=== PATIENT | male | born 1970 | race Hispanic/Latino ===

== ENCOUNTER 2017-02-24 20:54 | Inpatient (IN) | payer MEDICAID ==
[2017-02-24 20:57] VITALS: BMI 41.1
--- NOTE | 2017-02-24 21:05 | ED PDOC ---
Arrival/HPI - General Time Seen by Provider: 02/24/17 20:59 Historian: Patient - History of Present Illness Narrative History of Present Illness (Text): 02/24/17 20:59 Ronald Pennington is a 46 year old male, whose past medical history includes hypertension, who presents to the emergency department complaining of 3 days duration of palpitations, shortness of breath, dyspnea of exertion, and a feeling of neck pressure. Patient states that there are no relieving exacerbating factors. Patient denies any fevers, chills, or any other complaints at this time. Time/Duration: < week (3 days) Symptom Onset: Gradual Symptom Course: Unchanged Severity Level: Mild Activities at Onset: Rest Context: Home Past Medical History - Provider Review Nursing Documentation Reviewed: Yes Family/Social History - Physician Review Nursing Documentation Reviewed: Yes Family/Social History: No Known Family HX Allergies/Home Meds Allergies/Adverse Reactions: Allergies No Known Allergies Allergy (Verified 02/24/17 20:58) Physical Exam - Physical Exam Narrative Physical Exam (Text): 02/24/17 20:59 - Review of Systems Constitutional: Normal. absent: Fatigue, Weight Change, Fevers Eyes: Normal ENT: Neck pressure Respiratory: SOB, dyspnea on exertion. absent: Cough, Sputum Cardiovascular: Palpitations absent: Chest pain, Syncope Gastrointestinal: Normal absent: Abdominal pain, Diarrhea, Nausea, Vomiting Genitourinary: Normal. absent: Dysuria, Frequency, Hematuria Musculoskeletal: Normal. absent: Arthralgias, Back Pain, Neck Pain Skin: Normal Neurological: Normal absent: Focal Weakness Endocrine: Normal Hemo/Lymphatic: Normal Psychiatric: Normal - Physical exam Patient appears age appropriate, speaking full sentences without difficulty. - Systems Exam Head: Present: Atraumatic, Normocephalic Pupils: Present: PERRL Extraocular Muscles: Present: EOMI Conjunctiva: Present: Normal Mouth: Present: Moist Mucous Membranes Neck: Present: Normal Range of Motion. No: MIDLINE TENDERNESS, Paraspinal Tenderness Respiratory/Chest: Present: Clear to Auscultation, Good Air Exchange. No: Respiratory Distress, Accessory Muscle Use, Tachypneic Cardiovascular: Tachycardic Present: Normal S1, S2, Peripheral Pulses Present. No: Murmurs Abdomen: Present: Normal Bowel Sounds, No: Tenderness, Peritoneal Signs, Rebound, Guarding, Distention Back: Present: Normal Inspection. No: Midline Tenderness, Paraspinal Tenderness Upper Extremity: Present: Normal Inspection. No: Cyanosis, Edema Lower Extremity: Present: Normal Inspection. No: Edema Neurological: Present: GCS=15, Speech Normal, cranial nerves II through XII fully intact with no cerebellar abnormality, neuro-sensory fully intact. No focal neurological deficits. Skin: Present: Warm, Dry, Normal Color. No: Rashes Lymphatic: Present: OX3, NI, NC Psychiatric: Present: Alert, Oriented x 3, Normal Insight, Normal Concentration Vital Signs Reviewed: Yes Vital Signs Temp Pulse Resp BP Pulse Ox 02/24/17 23:17 120 H 02/24/17 22:36 146 H 149/100 H 02/24/17 22:13 134 H 132/100 H 02/24/17 21:34 149 H 137/100 H 02/24/17 21:27 20 02/24/17 21:13 148 H 137/100 H 02/24/17 21:02 98.7 F 149 H 16 137/100 H 98 Temperature: Afebrile Blood Pressure: Hypertensive Pulse: Tachycardic Respiratory Rate: Normal Appearance: Positive for: Well-Appearing, Non-Toxic, Comfortable Pain Distress: None Mental Status: Positive for: Alert and Oriented X 3 Medical Decision Making ED Course and Treatment: 02/24/17 21:08 Impression: 46 year old male complaining of 3 days duration of palpitations, shortness of breath, dyspnea on exertion, and a feeling of neck pressure. pt hemodynamically stable. Seen immediately on arrival. EKG shows atrial flutter, tachycardic, 150bpm. Interpreted by me. Differential Diagnosis included but are not limited to: Arrhythmia vs. ACS cs. Ischemia Plan: -- EKG -- Chest X-ray -- Labs -- Aspirin and Cardizem -- Reassess and disposition Progress Notes: 02/24/17 22:19 cardizem ordered, 20mg x2. No change in HR. BP elevated lopressor ordered cardizem drip held for now to see lopressor response CXR shows slight cardiomegaly, some vasc. congestion, no infiltrates. Interpreted by me. 02/24/17 23:31 HR decreased on cardizem drip pt in no distress seen by Dr. Quinones in the ER earlier dw Dr. Quinones as well, accepted pt to his service with Dr. Marina on consult pt aware of and agrees with plan - Critical Care Critical Care Minutes: 30 minutes - Lab Interpretations Lab Results: 02/24/17 21:15 02/24/17 21:15 Lab Results 02/24/17 21:15: Sodium 138, Potassium 3.9, Chloride 109 H, Carbon Dioxide 20 L, Anion Gap 13, BUN 17, Creatinine 1.0, Est GFR ( Amer) > 60, Est GFR (Non- Af Amer) > 60, Random Glucose 97, Calcium 8.8, Total Bilirubin 0.5, AST 68 H, ALT 80 H, Alkaline Phosphatase 64, Lactate Dehydrogenase 565, Total Creatine Kinase 241 H, CK-MB (CK-2) 2.2, CK-MB (CK-2) % Cancelled, Troponin I 0.06, Total Protein 7.3, Albumin 3.9, Globulin 3.4, Albumin/Globulin Ratio 1.1 02/24/17 21:15: PT 12.4 H, INR 1.15 H, APTT 27.9 02/24/17 21:15: WBC 8.5, RBC 3.97, Hgb 13.5 L, Hct 40.5 L, MCV 102.0, MCH 34.0, MCHC 33.3, RDW 13.4, Plt Count 175, MPV 11.8 H, Gran % 62.4, Lymph % (Auto) 29.5 , [place] % (Auto) 5.3, Eos % (Auto) 2.4, Baso % (Auto) 0.4, Gran # 5.30, Lymph # 2.5, [place] # 0.5, Eos # 0.2, Baso # 0.03 I have reviewed the lab results: Yes - RAD Interpretation Radiology Orders: 02/24/17 21:00 CHEST PORTABLE [RAD] Stat - Medication Orders Current Medication Orders: diltiaZEM IVPB 100mg in NS (Cardizem 100mg In Ns) 100 mls @ 5 mls/hr IV .Q20H STA; 5 MG/HR PRN Reason: Protocol Stop: 02/25/17 17:59 Last Admin: 02/24/17 22:36 Dose: 5 mls/hr Discontinued Medications Aspirin (Aspirin Chewable) 324 mg PO STAT STA Stop: 02/24/17 21:01 Last Admin: 02/24/17 21:13 Dose: 324 mg Diltiazem HCl (Cardizem) 20 mg IVP STAT STA Stop: 02/24/17 21:05 Last Admin: 02/24/17 21:13 Dose: 20 mg Diltiazem HCl (Cardizem) 20 mg IVP STAT STA Stop: 02/24/17 21:27 Last Admin: 02/24/17 21:34 Dose: 20 mg Metoprolol Tartrate (Lopressor) 5 mg IVP STAT STA Stop: 02/24/17 22:05 Last Admin: 02/24/17 22:13 Dose: 5 mg - Scribe Statement The provider has reviewed the documentation as recorded by the Johnathan Barajas Provider Scribe Attestation: All medical record entries made by the Jaredibe were at my direction and personally dictated by me. I have reviewed the chart and agree that the record accurately reflects my personal performance of the history, physical exam, medical decision making, and the department course for this patient. I have also personally directed, reviewed, and agree with the discharge instructions and disposition. Disposition/Present on Arrival - Present on Arrival Any Indicators Present on Arrival: No - Disposition Have Diagnosis and Disposition been Completed?: Yes Diagnosis: Atrial flutter Disposition: HOSPITALIZED Disposition Time: 23:37 Patient Plan: Observation Condition: FAIR Referrals: Antoine Quinones MD [Primary Care Provider] - Follow up with primary
[2017-02-24 21:23] LABS: ADD MANUAL DIFF? NO
[2017-02-24 21:36] LABS: ALB/GLOB RATIO 1.1 (1.1-1.8); ALKALINE PHOSPHATASE 64 U/L (38-133); ALT/SGPT 80 U/L (7-56); AST/SGOT 68 U/L (15-59); BILIRUBIN,TOTAL 0.5 mg/dL (0.2-1.3); BLOOD UREA NITROGEN 17 mg/dL (7-21); CALCIUM 8.8 mg/dL (8.4-10.5); CARBON DIOXIDE 20 mmol/L (21-33); CHLORIDE 109 mmol/L (98-107); GFR AFRICAN-AMERICAN > 60; GLUCOSE,RANDOM 97 mg/dL (70-110); POTASSIUM 3.9 mmol/L (3.6-5.0); SODIUM 138 mmol/L (132-148); TOTAL PROTEIN 7.3 g/dL (5.8-8.3)
[2017-02-24 21:48] LABS: TROPONIN I 0.06 ng/mL
[2017-02-24 21:54] LABS: BASO # 0.03 K/mm3 (0.0-2.0); BASO % 0.4 % (0.0-3.0); EOS # 0.2 (0.0-0.7); EOS % 2.4 % (1.5-5.0); GRAN % 62.4 % (50.0-68.0); HEMATOCRIT 40.5 % (42.0-52.0); LYMPH # 2.5 (1.2-3.4); LYMPH % 29.5 % (22.0-35.0); MEAN CORPUSCULAR HGB CONC 33.3 g/dl (31.0-37.0); MEAN PLATELET VOLUME 11.8 fl (7.0-11.0); MONO # 0.5 (0.1-0.6); MONO % 5.3 % (1.0-6.0); PLATELET COUNT 175 10^3/uL (120.0-450.0); RED CELL DISTRIBUTION WIDTH 13.4 % (11.5-14.5); WHITE BLOOD COUNT 8.5 10^3/ul (4.5-11.0)
[2017-02-24] MEDS ORDERED: diltiaZEM IVPB 100mg in NS 100 ML IV STA (22:00)
[2017-02-24] MEDS ORDERED: Metoprolol 1 mg/ml Inj IVP STA (22:04)
[2017-02-24 22:10] LABS: INR 1.15 (0.93-1.08); PARTIAL THROMBOPLASTIN TIME 27.9 Seconds (23.7-30.8)
[2017-02-25] MEDS ORDERED: diltiaZEM IVPB 100mg in NS 100 ML IV PRN (03:38)
[2017-02-25] MEDS ORDERED: Enoxaparin 60 mg Syringe SC SCH (08:30)
[2017-02-25] MEDS ORDERED: Digoxin 500 mcg/2ml (0.5 mg/2ml) Inj IVP ONE ×2 (08:59→13:00)
[2017-02-25] MEDS: Enoxaparin 120 mg Syringe SC SCH ×2 (09:20→23:12)
[2017-02-25 09:37] LABS: MAGNESIUM 2.2 mg/dL (1.7-2.2); PHOSPHOROUS 4.6 mg/dL (2.5-4.5)
[2017-02-25 09:48] LABS: TROPONIN I 0.06 ng/mL
--- NOTE | 2017-02-25 11:13 | HP ---
A 46-year-old male came in with palpitations, tightness within his throat. HISTORY OF PRESENT ILLNESS: The patient has these symptoms for a day, came to the office, found to flavia sanchez in atrial flutter, sent to the Emergency Room for evaluation, was admitted with atrial flutter and admitted to cardiac floor. He does have also short of breath. The patient is a drinker, is heavy, n oncompliant. He does have high blood pressure. Does not take any medicines, is noncompliant with do ctors' visits. PAST MEDICAL HISTORY: As above. ALLERGIES: No known allergies. SOCIAL HISTORY: He smokes more than 10 cigarettes a day. No other complaint. FAMILY HISTORY: His father has coronary artery disease and atrial fibrillations. REVIEW OF SYSTEMS: He does have short of breath, back pain, otherwise negative. PHYSICAL EXAMINATION: On 02/25/2017: VITAL SIGNS: Temperature 98.6, heart rate 98, blood pressure 128/72, respirations 20, saturation 95% on nasal cannula. HEAD AND NECK: Normal. No JVD, no thyromegaly. CHEST: Clear, good air entry. CARDIAC: First sound, second sound normal. ABDOMEN: Soft, obese, nontender. EXTREMITIES: No edema. NEUROLOGIC: Normal. LABORATORY DATA: White count 8.5, hemoglobin 13.5, hematocrit 40.5, platelets is 175. Chemistry: S odium 138, potassium 3.9, chloride 109, bicarb 20, BUN 17, creatinine 1. Liver function test: AST 6 8, ALT 80, and total CPK 241. The patient has also troponin 0.06. EKG: Atrial flutter. PT, PTT is normal. IMPRESSION AND PLAN: 1. Acute onset atrial fibrillation/flutter. Will admit to telemetry. Cardiology, Dr. Marina. Will p ut the patient on Cardizem drip. Follow up. Repeat labs in the morning, TSH, lipid profile, geochemistry teacher ry, magnesium. Will follow up clinically. 2. Morbid obesity and smoker, probably chronic obstructive pulmonary disease. Will add nebulizer tr eatment, bronchodilators. Will follow up clinically. 3. Abnormal liver function tests. Will get a hepatitis profile, ultrasound liver. Will follow up w [facility] serviceperson and GI. Anticoagulation is up to the cardiology, but will put the patient on aspirin 325. Follow up clinical ly. The patient will need an echo and further investigation. Antoine Quinones MD cc: [phone] TT: 02/25/2017 11:12:52 en
--- NOTE | 2017-02-25 11:40 | CON ---
DATE: 02/25/2017 REASON FOR CONSULTATION AND FOLLOWUP: New onset atrial fibrillation, heavy alcohol abuse. BRIEF CLINICAL HISTORY: This is a 46-year-old male with a past medical history significant for obesi ty, history of heavy alcohol abuse (24 cans of beer every day), came in with palpitations, found to b e in AFib with rapid ventricular rate. Denies any chest pain, denies any palpitation, but history of gaining weight over a couple of months; is not eating healthy food and is drinking heavy alcohol bec ause of stress at home and work. PAST MEDICAL HISTORY: Significant for borderline hypertension. CURRENT MEDICATION: None. SOCIAL HISTORY: Active smoker and active heavy alcohol abuse. Drinks 24 cans of beer every day. FAMILY HISTORY: Significant for coronary artery disease. CURRENT MEDICATIONS: None. REVIEW OF SYSTEMS: As per HPI. PHYSICAL EXAMINATION: VITAL SIGNS: Temperature afebrile, heart rate 98, blood pressure 128/72. HEENT: PERRLA. Extraocular muscles intact. NECK: Supple. No carotid bruits. No thyromegaly. CHEST: Clear to auscultation. HEART: S1, S2 regular. ABDOMEN: Soft. EXTREMITIES: Clubbing and cyanosis negative. BLOOD WORKUP: As follows: WBC 8.5, hemoglobin 13.5, hematocrit 30.5, platelet count 175. Chemistry shows sodium 130, potassium 3.9, chloride 109, carbon dioxide 20, anion gap of 13, BUN 17, creatinin e 1.0. Troponin 0.06. EKG shows A. flutter with variable conduction. IMPRESSION: New onset atrial flutter secondary to possible alcohol related/heavy alcohol abuse, [place] 24 cans every day; tobacco abuse, morbid obesity. RECOMMENDATION: Will continue Cardizem. Will start beta chantell. Give digoxin. Give Lovenox. Ech o to assess LV function. Once stable, consider stress test because of multiple risk factors of coron ava artery disease. Will follow with you. Lipid profile, TSH, hemoglobin A1c. Thank you, Dr. Quinones, for providing the opportunity in taking care of the patient. Clifford Marina MD cc: [phone] TT: 02/25/2017 11:39:47 Confirmation # [id number] Dictation # [id number] mn
--- NOTE | 2017-02-25 12:47 | RAD ---
HISTORY: cough COMPARISON: No prior. FINDINGS: LUNGS: No active pulmonary disease. PLEURA: No significant pleural effusion identified, no pneumothorax apparent. CARDIOVASCULAR: Normal. OSSEOUS STRUCTURES: No significant abnormalities. VISUALIZED UPPER ABDOMEN: Normal. OTHER FINDINGS: None. IMPRESSION: No active disease.
[2017-02-25] MEDS ORDERED: Levalbuterol 1.25 MG/3 ML Inhal Soln UD IH PRN (13:17)
[2017-02-25] MEDS: Budesonide 0.5 mg/2 ml Inhal Susp UD IH SCH ×2 (13:27→19:36)
[2017-02-25] MEDS: Arformoterol 15 mcg/2 ml Inh Sol IH SCH ×2 (13:27→19:36)
[2017-02-25 13:29] VITALS: PULSE 86
[2017-02-25] MEDS ORDERED: Iodixanol 320 MG/ML 100 ML BOTTLE IV ONE (14:03)
--- NOTE | 2017-02-25 14:56 | CT ---
PROCEDURE: CT Chest with contrast (Pulmonary Angiogram) HISTORY: patient states to Dr. Quinones: SOB/SAM during walki COMPARISON: Plain radiographs performed the same day TECHNIQUE: Axial computed tomography images were obtained of the chest in the pulmonary arterial phase of enhancement. Coronal and sagittal reformatted images were created and reviewed. Intravenous contrast dose: 100 mL Visipaque Radiation dose: Total exam DLP = 840.47 mGy-cm. This CT exam was performed using one or more of the following dose reduction techniques: Automated exposure control, adjustment of the mA and/or kV according to patient size, and/or use of iterative reconstruction technique. FINDINGS: PULMONARY ARTERIES: There are no filling defects in the pulmonary arteries to suggest acute pulmonary embolism. AORTA: The aorta is not dilated. LUNGS: There is multifocal ground-glass attenuation in the upper lobes which likely represents alveolar edema, worse in the right upper lobe. There is mild interlobular septal thickening. There is subsegmental atelectasis in both lower lobes. There are no endobronchial lesions. PLEURAL SPACES: There are bilateral small pleural effusions, larger on the right. No pneumothorax. HEART: There is mild cardiomegaly. No pericardial effusion. LYMPH NODES: No pathologic lymphadenopathy. BONES, CHEST WALL: Within normal limits for the patient's age. No fracture or destructive lesion OTHER FINDINGS: Unremarkable. IMPRESSION: 1. No CT evidence for acute pulmonary embolism. 2. Mild cardiomegaly, interstitial pulmonary edema, bilateral upper lobe alveolar edema and small pleural effusions, larger on the right may reflect mild congestive heart failure. Follow-up is advised.
--- NOTE | 2017-02-25 15:00 | US ---
HISTORY: lfts elevations COMPARISON: None. TECHNIQUE: Sonographic evaluation of the right upper quadrant of the abdomen. FINDINGS: LIVER: Measures 19.9 cm in length. Diffusely increased echogenicity of the liver parenchyma. Smooth contour. No mass. No intrahepatic biliary ductal dilatation. GALLBLADDER: No evidence of cholelithiasis. The gallbladder wall is thickened, to 4 mm. There is pericholecystic fluid present. There is no sonographic Evans sign demonstrated. The findings are nonspecific. COMMON BILE DUCT: Measures 5 mm. No stones. No dilatation. PANCREAS: Limited visualization. No gross abnormality. RIGHT KIDNEY: Measures 12.2 cm in length. Normal echogenicity. No calculus, mass, or hydronephrosis. AORTA: No aneurysmal dilatation. IVC: Unremarkable. OTHER FINDINGS: None . IMPRESSION: Hepatomegaly with diffuse fatty infiltration. Nonspecific gallbladder wall thickening and pericholecystic fluid. No cholelithiasis. No additional abnormality.
--- NOTE | 2017-02-25 17:54 | CARD ---
APPROVED REPORT EKG Measurement Heart [id number] 186P [id number] <Conclusion> Atrial flutter with vaiable conduction T wave abnormality, consider inferolateral ischemia Abnormal ECG
--- NOTE | 2017-02-25 18:11 | CARD ---
APPROVED REPORT EKG Measurement Heart [id number] [place] [id number] [id number] <Conclusion> Atrial flutter with 2:[address] and T wave abnormality Abnormal ECG
--- NOTE | 2017-02-26 04:28 | CP.PCM.PN ---
Subjective - Date & Time of Evaluation Date of Evaluation: 02/26/17 Time of Evaluation: 04:26 - Subjective Subjective: S:Seen at bedside. He is asymptomatic. He was seen because he had multiple pauses. @1.20 am-3.4 second pause. hour later another 3 seconds pause. When I went to floor he has 5.58 second pause and before I left the floor he had 5.43 seconds pause. Monitor showed Afib/Flutter. Medical record was reviewed. O: Last Vital Signs 3 Temp 99.1 F 02/26/17 00:01 Pulse 100 H 02/26/17 02:00 Resp 20 02/26/17 00:01 BP 113/73 02/26/17 00:01 Pulse Ox 96 02/26/17 00:01 LUNGS:Normal breathing pattern. A:Multiple pauses . P:AM labs now including BMP, Mag,PHOS, troponin, digoxin levels. Objective - Vital Signs/Intake and Output Vital Signs (last 24 hours): Temp Pulse Resp BP Pulse Ox 98.3 F 78 21 104/55 L 96 02/25/17 18:00 02/25/17 23:12 02/25/17 18:00 02/25/17 18:00 02/25/17 09:00 - Medications Medications: Current Medications Arformoterol Tartrate (Brovana) 15 mcg IH [id number] [facility] Stop: 03/03/17 08:00 Last Admin: 02/25/17 19:36 Dose: 15 mcg Budesonide (Pulmicort Respules) 0.5 mg IH [id number] [facility] Stop: 03/03/17 08:00 Last Admin: 02/25/17 19:36 Dose: 0.5 mg Diltiazem HCl (Cardizem) 60 mg PO QID [facility] Last Admin: 02/25/17 23:12 Dose: 60 mg Enoxaparin Sodium (Lovenox) 120 mg SC Q12H REKHA PRN Reason: Protocol Last Admin: 02/25/17 23:12 Dose: 120 mg Levalbuterol HCl (Xopenex) 1.25 mg IH [id number] PRN PRN Reason: Shortness of Breath Metoprolol Tartrate (Lopressor) 25 mg PO BID [facility] Last Admin: 02/25/17 17:07 Dose: 25 mg - Labs Labs: PT 12.4 Seconds (9.9-11.8) H 02/24/17 21:15 INR 1.15 (0.93-1.08) H 02/24/17 21:15 APTT 27.9 Seconds (23.7-30.8) 02/24/17 21:15
[2017-02-26 05:18] LABS: ALB/GLOB RATIO 1.1 (1.1-1.8); ALKALINE PHOSPHATASE 48 U/L (38-133); ALT/SGPT 80 U/L (7-56); AST/SGOT 46 U/L (15-59); BILIRUBIN,TOTAL 0.7 mg/dL (0.2-1.3); BLOOD UREA NITROGEN 11 mg/dL (7-21); CALCIUM 8.6 mg/dL (8.4-10.5); CARBON DIOXIDE 24 mmol/L (21-33); GFR AFRICAN-AMERICAN > 60; GLUCOSE,RANDOM 93 mg/dL (70-110); PHOSPHOROUS 5.2 mg/dL (2.5-4.5); TOTAL PROTEIN 6.6 g/dL (5.8-8.3)
[2017-02-26 05:24] LABS: HEMATOCRIT 39.3 % (42.0-52.0); MEAN CELL VOLUME 101.6 fL (80.0-105.0); MEAN CORPUSCULAR HEMOGLOBIN 33.6 pg (25.0-35.0); MEAN CORPUSCULAR HGB CONC 33.1 g/dl (31.0-37.0); MEAN PLATELET VOLUME 11.1 fl (7.0-11.0); RED CELL DISTRIBUTION WIDTH 13.2 % (11.5-14.5); WHITE BLOOD COUNT 8.9 10^3/ul (4.5-11.0)
[2017-02-26 05:30] LABS: TROPONIN I 0.05 ng/mL
[2017-02-26 05:43] LABS: CHLORIDE 108 mmol/L (98-107); POTASSIUM 4.2 mmol/L (3.6-5.0); SODIUM 138 mmol/L (132-148)
[2017-02-26 05:44] LABS: MAGNESIUM 2.2 mg/dL (1.7-2.2)
[2017-02-26] MEDS: Arformoterol 15 mcg/2 ml Inh Sol IH SCH ×2 (07:31→19:52)
[2017-02-26] MEDS: Budesonide 0.5 mg/2 ml Inhal Susp UD IH SCH ×2 (07:31→19:52)
[2017-02-26] MEDS: Enoxaparin 120 mg Syringe SC SCH ×2 (09:22→21:31)
--- NOTE | 2017-02-26 12:19 | PN ---
DATE: 02/26/2017 REASON FOR CONSULTATION AND FOLLOWUP: New onset atrial fibrillation, heavy alcohol abuse, multiple p auses while the patient is sleeping, asymptomatic. BRIEF CLINICAL HISTORY: This is a 46-year-old male with no significant past medical history except o besity, heavy alcohol abuse, 20 cans of beer every day, came in with palpitations, was in A-fib with rapid ventricular rate. The patient started on Cardizem p.o., also is getting digoxin and beta block er. The patient had multiple pauses, A-flutter with variable conduction, longest pause 5.4 seconds, but the patient was sleeping, asymptomatic. Denies any chest pain, shortness of breath. Denies any dizziness. PHYSICAL EXAMINATION: VITAL SIGNS: Temperature afebrile, heart rate 120, blood pressure 109/59. HEENT: PERRLA. Extraocular muscles intact. NECK: Supple. No carotid bruits. No thyromegaly. CHEST: Clear to auscultation. HEART: S1, S2 regular. ABDOMEN: Soft. EXTREMITIES: Clubbing and cyanosis negative. LABORATORY DATA: Blood workup as follows: WBC 8.9, hemoglobin 13, hematocrit 39.3, platelet count 1 49. Chemistry shows sodium 130, potassium 4.2, chloride 108, carbon dioxide 20, anion gap of 10, BUN 11, creatinine 1.0. BNP 3500. IMPRESSION: Atrial fibrillation, new onset, possibly secondary to alcohol related, history of heavy alcohol abuse, 24 cans of beer every day; multiple pauses while he was sleeping at 4:00 a.m. Longest had been 5.4 seconds. RECOMMENDATION: We will discontinue digoxin. We will discontinue Cardizem. We will hold beta block er. Start loading with amiodarone. Because of the patient's heavy alcohol abuse, I will try to get SERG convert. Discussed with the patient that, though it is unlikely, but a very small slim chance, t he patient needs a pacemaker because of multiple pauses. I think these multiple pauses are secondary to 3 rate-limiting medication including beta chantell, digoxin and Cardizem, but we will monitor clos melchor. Thank you, Dr. Quinones, for providing us the opportunity in taking care of the patient. Clifford Marina MD cc: [phone] TT: 02/26/2017 12:18:22 Confirmation # [id number] Dictation # [id number] tn
--- NOTE | 2017-02-26 14:35 | CARD ---
APPROVED REPORT EXAM: Two-dimensional and M-mode echocardiogram with Doppler and color Doppler. INDICATION 2D DIMENSIONS IVSd1.3 (0.7-1.1cm)LVDd6.6 (3.9-5.9cm) PWd1.4 (0.7-1.1cm)LVDs4.9 (2.5-4.0cm) FS (%) 25.9 %LVEF (%)49.8 (>50%) M-Mode DIMENSIONS Left Atrium (MM)4.80 (2.5-4.0cm)Aortic Root4.00 (2.2-3.7cm) Aortic Cusp Exc.2.60 (1.5-2.0cm) Aortic Valve AoV Peak Lhxmkmmc535.0cm/Radha Peak GR.7mmHg Mitral Valve MV E Dzsgjbll68.1cm/s TDI Lateral E' Peak V10.50cm/sMedial E' Peak V6.24cm/sE/Lateral E'8.2 E/Medial E'13.8 Tricuspid Valve TR Peak Ktdxhora042nl/sRAP [id number] Peak Gr.32mmHg [id number] LEFT VENTRICLE The Left Ventricle is moderately dilated. There is mild concentric left ventricular hypertrophy. The systolic function is mildly impaired.EF-45% ( A fib) Globall HK. A Fib No left ventricle thrombus noted on this study. There is no ventricular septal defect visualized. There is no left ventricular aneurysm. There is no mass noted in the left ventricle. RIGHT VENTRICLE The right ventricle is mildly dilated. There is normal right ventricular wall thickness. Systolic function is mildly reduced. ATRIA The left atrium is moderately dilated. The right atrium is mildly dilated. The interatrial septum is intact with no evidence for an atrial septal defect. AORTIC VALVE The aortic valve is thickened but opens well. There is trace aortic regurgitation. There is no aortic valvular stenosis. There is no aortic valvular vegetation. MITRAL VALVE The mitral valve is thickened but opens well. Mitral regurgitation is trace to mild. There is no mitral valve stenosis. There is no evidence of mitral valve prolapse. TRICUSPID VALVE The tricuspid valve leaflets are thickened , but open well. There is mild to moderate tricuspid regurgitation.RVSP-42 mmof hg. There is no tricuspid valve stenosis. There is no tricuspid valve prolapse or vegetation. PULMONIC VALVE The pulmonary valve is normal in structure. There is trace pulmonic valvular regurgitation. There is no pulmonic valvular stenosis. GREAT VESSELS The aortic root is mildly enlarged. The ascending aorta is normal in size. The pulmonary artery is normal. The IVC is dilated. PERICARDIAL EFFUSION There is no pleural effusion. There is no pericardial effusion. <Conclusion> The Left Ventricle is moderately dilated. There is mild concentric left ventricular hypertrophy. The systolic function is mildly impaired.EF-45% ( A fib) The aortic valve is thickened but opens well. There is trace aortic regurgitation. Mitral regurgitation is trace to mild. There is mild to moderate tricuspid regurgitation.RVSP-42 mmof hg. The IVC is dilated. No Thrombus or Vegetation noted.
[2017-02-26] MEDS: diltiaZEM IVPB 100mg in NS 100 ML IV PRN (15:52)
[2017-02-27] MEDS: Arformoterol 15 mcg/2 ml Inh Sol IH SCH ×2 (08:19→19:34)
[2017-02-27] MEDS: Budesonide 0.5 mg/2 ml Inhal Susp UD IH SCH ×2 (08:19→19:34)
[2017-02-27] MEDS: Enoxaparin 120 mg Syringe SC SCH ×2 (09:06→21:49)
--- NOTE | 2017-02-27 13:22 | PN ---
DATE: 02/27/2017 REASON FOR CONSULTATION AND FOLLOWUP: New onset atrial fibrillation, heavy tobacco abuse, heavy alco hol abuse, multiple pauses which is improved. No AFib flutter. Longest was today, it was 2.3 second s. SUBJECTIVE: The patient denies any chest pain, shortness of breath, any palpitations, feels better. Shortness of breath improved. PHYSICAL EXAMINATION: VITAL SIGNS: Temperature afebrile, heart rate 90, blood pressure 132/87. HEENT: PERRLA. Extraocular muscles intact. NECK: Supple. No carotid bruits. No thyromegaly. CHEST: Clear to auscultation. HEART: S1, S2 regular. ABDOMEN: Soft. EXTREMITIES: Clubbing and cyanosis negative. LABORATORY DATA: Blood workup as follows: WBC 8.9, hemoglobin 13, hematocrit 39.3, platelet count 1 49. Chemistry shows sodium 130, potassium 4.2, chloride 108, carbon dioxide 24, anion gap of 10, BUN 11, creatinine 1.0. BNP 3500. IMPRESSION: New onset atrial fibrillation, no evidence of acute myocardial infarction, no evidence o f coronary syndrome, tobacco abuse, alcohol abuse, multiple pauses while the patient was on digoxin, Cardizem and beta chantell. Now patient is on amiodarone and Cardizem, pause improved. The patient h ad an echocardiography done yesterday that revealed ejection fraction 45% in atrial fibrillation, thi ckened aortic valve opens, trace aortic regurgitation, trace to mild mitral regurgitation, mild to mo derate tricuspid regurg, right ventricular systolic pressure of 42. RECOMMENDATION: Continue amiodarone, continue low dose of Cardizem, continue to load amiodarone and will do the SERG cardiovert tomorrow. Once the patient is converted, after that will start no anticoa gulation for 2 weeks. We will follow with you. Complete cessation of smoking, complete abstinence o f alcohol. Emphasis made to the patient, as well as weight reduction. Clifford Marina MD cc: [id number] TT: 02/27/2017 13:21:29 Confirmation # [id number] Dictation # [id number] roderick
--- NOTE | 2017-02-27 21:35 | CON ---
DATE: 02/27/2017 REFERRING PHYSICIAN: Dr. Quinones. REASON FOR CONSULT: Chronic obstructive lung disease, may have sleep apnea syndrome, recurrent afib. HISTORY OF PRESENT ILLNESS: This is a 47-year-old gentleman who originally came to ER with palpitati on, tightness in the throat, found to be in atrial flutter, admitted to telemetry. Cardiology consul t was called. Seen by Dr. Marina. He is scheduled for cardioversion. He is an active smoker, admits to have snoring, daytime sleepy and tired. No chest pain at present. No nausea, no vomiting, no diarrhea. No leg pain or leg swelling. PAST MEDICAL HISTORY: No history of cardiopulmonary disease reported in the past. ALLERGIES: None known. SOCIAL HISTORY: He is an active smoker. Denies any alcohol use. FAMILY HISTORY: There is significant coronary artery disease and also atrial fibrillation. MEDICATIONS: He is on Brovana 15 mcg inhaled twice a day, diltiazem 5 mL per hour, amiodarone 400 mg 3 times a day, Lovenox 120 mg subQ twice a day, Pulmicort inhaled twice a day, Xopenex 1.25 mg q. 6 hours p.r.n. REVIEW OF SYSTEMS: No headache, no rhinitis. Admits to have loud snoring, daytime sleepy and tired, palpitation. No cough. No nausea, no vomiting, and no diarrhea. No leg pain or swelling. Daytime sleepy and tired. PHYSICAL EXAMINATION: GENERAL: Sitting up in a chair in no acute distress. VITAL SIGNS: Temp is 98, heart rate is 95, respiratory rate is 20, blood pressure is 167/76, pulse o x 98% on room air. HEENT: Moist mucous membranes. Crowded airway. Mallampati score is 4. NECK: Short, thick neck. LUNGS: Have scattered rhonchi. HEART: Irregularly irregular. ABDOMEN: Soft, nontender. No organomegaly. EXTREMITIES: No edema. NEUROLOGIC: Awake, alert, follows simple commands. LABORATORY DATA: Shows hemoglobin 13.0, hematocrit 39.3, WBC 8.9, platelet is 149. INR 1.15. Sodiu m 138, potassium 4.2, chloride 108, bicarbonate 24, BUN 11, creatinine 1.0, glucose 93, calcium 8.6, phosphorus 5.2, magnesium 2.2. AST is 46, ALT 80, alk phos is 48. ProBNP is 3500. Albumin is 3.5. Had echocardiogram done today, which shows the right ventricular systolic pressure is 42. Left vent ricular ejection fraction is 45. Had a CT scan of the chest done yesterday, which showed no CT evide nce of pulmonary embolism, mild cardiomegaly, interstitial pulmonary edema, bilateral upper lobe alve olar edema and small pleural effusion, large on the right, may reflect mild congestive heart failure. IMPRESSION AND PLAN: Atrial fibrillation with cardiomyopathy, may have a component of chronic obstru ctive pulmonary disease, obstructive sleep apnea syndrome, morbid obesity. The patient is urged to s top smoking. He was placed on BiPAP 12 hours used only 2 hours last night. Will change the pr essure to 14/8 with 35% oxygen while sleeping. I had a long discussion with the patient about sleep apnea and its consequences, especially the relation to cardiomyopathy, atrial fibrillation. I also u rged him to stop smoking. Will do attended sleep study as outpatient, PFT as outpatient. Thank you and will follow with you. Another important thing, if he is sedated for SERG needs close cardiopulmonary monitoring while sedate d. Thank you again. Clifford Oviedo MD cc: [phone] TT: 02/27/2017 21:34:33 Confirmation # [id number] Dictation # [id number] jennifer
[2017-02-27] MEDS: diltiaZEM IVPB 100mg in NS 100 ML IV PRN (21:50)
[2017-02-28 06:41] LABS: ADD MANUAL DIFF? NO; BASO # 0.02 K/mm3 (0.0-2.0); BASO % 0.2 % (0.0-3.0); EOS # 0.2 (0.0-0.7); EOS % 1.9 % (1.5-5.0); GRAN # 6.53 (1.4-6.5); GRAN % 71.4 % (50.0-68.0); HEMATOCRIT 38.2 % (42.0-52.0); LYMPH # 1.9 (1.2-3.4); LYMPH % 20.9 % (22.0-35.0); MEAN CELL VOLUME 100.8 fL (80.0-105.0); MEAN CORPUSCULAR HEMOGLOBIN 33.5 pg (25.0-35.0); MEAN CORPUSCULAR HGB CONC 33.2 g/dl (31.0-37.0); MEAN PLATELET VOLUME 11.9 fl (7.0-11.0); MONO # 0.5 (0.1-0.6); MONO % 5.6 % (1.0-6.0); PLATELET COUNT 146 10^3/uL (120.0-450.0); RED CELL DISTRIBUTION WIDTH 13.3 % (11.5-14.5); WHITE BLOOD COUNT 9.1 10^3/ul (4.5-11.0)
[2017-02-28 06:57] LABS: ALB/GLOB RATIO 1.1 (1.1-1.8); ALKALINE PHOSPHATASE 53 U/L (38-133); ALT/SGPT 58 U/L (7-56); AST/SGOT 30 U/L (15-59); BILIRUBIN,TOTAL 0.8 mg/dL (0.2-1.3); BLOOD UREA NITROGEN 10 mg/dL (7-21); CALCIUM 8.5 mg/dL (8.4-10.5); CARBON DIOXIDE 24 mmol/L (21-33); CHLORIDE 107 mmol/L (98-107); GFR AFRICAN-AMERICAN > 60; GLUCOSE,RANDOM 98 mg/dL (70-110); MAGNESIUM 2.4 mg/dL (1.7-2.2); PHOSPHOROUS 4.1 mg/dL (2.5-4.5); SODIUM 138 mmol/L (132-148); TOTAL PROTEIN 6.8 g/dL (5.8-8.3)
[2017-02-28] MEDS: Budesonide 0.5 mg/2 ml Inhal Susp UD IH SCH ×2 (07:57→19:45)
[2017-02-28] MEDS: Arformoterol 15 mcg/2 ml Inh Sol IH SCH ×2 (07:57→19:45)
[2017-02-28] MEDS: Enoxaparin 120 mg Syringe SC SCH (09:47)
--- NOTE | 2017-02-28 12:41 | PN ---
DATE: 02/27/2017 A 47 male admitted with AFib. The patient is stable otherwise. PHYSICAL EXAMINATION: VITAL SIGNS: Temperature is 98, heart rate 90, temperature 98.5, heart rate 90, blood pressure 107/7 6, respirations 20, sat 98%. HEAD AND NECK: Normal. No JVD, no thyromegaly. CHEST: Clear, good air entry. CARDIAC: First and second sounds are normal. ABDOMEN: Soft, nontender. EXTREMITIES: No edema. NEUROLOGIC: Normal. LABORATORY DATA: On the will be done tomorrow. IMPRESSION AND PLAN: New onset atrial fibrillation. Continue Lovenox subQ. Continue IV Cardizem, a miodarone. The patient will be going for cardioversion. Echocardiography is done. The report shows mild to moderate tricuspid regurgitation, and right ventricular systolic pressure of 42. Inferior v gabbie cava is dilated. No ____ vegetations. The patient also had left ventricle is hypertrophied, con centric. Systolic function is mildly impaired. EF 45% ____ global. No left ventricular thrombus, n o ventricular septal defect on the echocardiogram, and also the patient had a CT angio, which was neg ative for pulmonary embolism. The patient also had an abdominal ultrasound, and the result shows no evidence of cholelithiasis. Gallbladder wall was good. Negative Evans's sign. There are no stones . The liver is diffuse increased echogenicity of the liver parenchyma, otherwise negative. Hepatome dayana, diffuse fatty infiltrations otherwise negative. IMPRESSION AND PLAN 1. Acute new onset atrial fibrillation. Continue Cardizem, continue Lovenox. Continue amiodarone. Will follow up with or nurse manager. The patient will need a cardioversion. An echocardiogram was don e, and it showed impaired left ventricular systolic functions, and also pulmonary hypertension, proba rahel secondary to left side heart failure. Left atrium is moderately dilated, and left atrium is mode rately dilated at 4.8, and we will do cardioversion. Success depends on the patient's condition, lef t atrium size, and we will give it a try. 2. Pulmonary hypertension, congestive heart failure, start Lasix. We will discuss with cardiology. We will give him Lasix 20 IV daily. 3. Hypertension, alcohol abuse, diffuse fatty liver, morbid obesity, chronic obstructive pulmonary d isease, obstructive sleep apnea, will be followed by Dr. Oviedo. Antoine Quinones MD cc: [phone] TT: 02/28/2017 12:40:33 Confirmation # [id number] Dictation # [id number] jn
[2017-02-28] MEDS ORDERED: Lidocaine 2% Jelly (30 ml) ONE (13:40)
[2017-02-28] MEDS ORDERED: Midazolam 2 MG/2 ML VIAL ONE ×2 (14:19→14:41)
[2017-02-28] MEDS ORDERED: Metoprolol 1 mg/ml Inj IVP ONE ×4 (14:20→14:52)
[2017-02-28] MEDS ORDERED: Flumazenil 0.1 mg/ml Inj (5ml) IVP ONE (14:20)
[2017-02-28] MEDS ORDERED: Naloxone 0.4 mg/ml Inj (Adult) ONE (14:20)
[2017-02-28] MEDS ORDERED: Midazolam 2 MG/2 ML VIAL IV ONE ×5 (14:25→14:41)
[2017-02-28] MEDS ORDERED: Sodium Chloride 0.9% 1,000 ML IV SCH (15:00)
--- NOTE | 2017-02-28 16:10 | PN ---
DATE: 02/26/2017 The patient on telemetry for AFib overnight. He has a pause 5 seconds x 2. The patient was on digox in, Cardizem, and the patient was off of this medication by that time when this happened, and current ly he is stable. He is on IV Cardizem. He is hemodynamically stable. PHYSICAL EXAMINATION: VITAL SIGNS: On the 2016, the patient's temperature is 98. Heart rate is 100s now, blood press ure 121/78, respirations 20. HEAD AND NECK: Normal. No JVD, no thyromegaly. CHEST: Clear, good air entry. CARDIAC: First sound and second sound normal, regular. ABDOMEN: Soft, obese, nontender. EXTREMITIES: No edema. NEUROLOGIC: Normal. LABORATORY DATA: White count 8.9, hemoglobin 13, hematocrit 39.3, platelets 149. His chemistry for 02/26 shows sodium 138, potassium 4.2, chloride 108, bicarb 24, BUN 11, creatinine 1. The patient tenorio s also phosphorus 5.2. The rest of the enzymes normal except ALT is elevated liver enzymes. The pat ient's proBNP is 3500. IMPRESSION AND PLAN: 1. Atrial fibrillation. I will discuss with Dr. Marina. Will continue current medicines. Continue L ovenox 120 b.i.d. Continue IV Cardizem. The patient will get a transesophageal echo and maybe a pos sible cardioversion. 2. Hypertension. 3. Chronic alcohol abuse. 4. Morbid obesity, possible obstructive sleep apnea and chronic obstructive pulmonary disease. Cont inue inhaled bronchodilators. The patient will try. Will consider BiPAP machine at night. Dr. Yamilka padgett, pulmonary consult, and will continue current treatment. We will consider also Lasix, and we will discuss further with cardiology. Antoine Quinones MD cc: [phone] TT: 02/28/2017 12:16:26 Confirmation # [id number] Dictation # [id number] emilee
--- NOTE | 2017-02-28 16:40 | CARD ---
APPROVED REPORT EKG Measurement Heart [id number] ID [id number] <Conclusion> Normal sinus rhythm Possible Left atrial enlargement T wave abnormality S/p SERG and Cardioversion
--- NOTE | 2017-02-28 17:08 | CARD ---
APPROVED REPORT EXAM: Transesophageal echocardiogram with color flow Doppler and Synchronized Cardioversion. INDICATION Atrial Fibrillation 2D DIMENSIONS Left Atrium (2D)5.8 (1.6-4.0cm) Mitral Valve E/A ratio0.0 TDI E/Lateral E'0.0E/Medial E'0.0 Reason For Test : SERG and Cardioversion PROCEDURE After obtaining informed consent, patient underwent transesophageal echo in the Echo Lab. Type of Sedation : Conscious Sedation Sedation was administered by DR. vallejo. Sedation was achieved with Versed and , Fentanyl 5mg and 200mcg intravenously. Transesophageal probe was inserted and advanced into esophagus without difficulty. Echo enhancement indication: R/O Septal defect. Echo enhancement agent administered: Agitated Saline The SERG was performed without complications. Synchronized Cardioversion attempted: Successful Synchronized Cardioversion acheived with 200 Joules after first attempt(s). Rhythm following Synchronized Cardioversion: Normal Sinus Rhythm Throughout the procedure, the blood pressure, pulse oximetry, cardiac rhythm, and rate were monitored. The patient tolerated the procedure without adverse effects. Recovery from conscious sedation was uneventful and vital signs were stable. LEFT VENTRICLE The Left Ventricle is mildly dilated. There is borderline to mild left ventricular hypertrophy. Left ventricle systolic function is moderately impaired.EF-25-30% ( a fib) There is modearte global hypokinesis of the left ventricle. A fib No left ventricle thrombus noted on this study. There is no ventricular septal defect visualized. There is no left ventricular aneurysm. There is no mass noted in the left ventricle. RIGHT VENTRICLE The right ventricle is mildly dilated. There is normal right ventricular wall thickness. Systolic function is mildly to moderately reduced. ATRIA The left atrium is moderately dilated. The right atrium is moderately dilated. The interatrial septum is intact with no evidence for an atrial septal defect. AORTIC VALVE The aortic valve is normal in structure. There is trace aortic regurgitation. There is no aortic valvular stenosis. There is no aortic valvular vegetation. MITRAL VALVE The mitral valve leaflets are thickened. There is no evidence of mitral valve prolapse. There is no mitral valve stenosis. Mitral regurgitation is moderate to severe. TRICUSPID VALVE The tricuspid valve leaflets display thickening. There is mild to moderate tricuspid regurgitation. There is no tricuspid valve prolapse or vegetation. There is no tricuspid valve stenosis. PULMONIC VALVE The pulmonary valve is normal in structure. There is trace pulmonic valvular regurgitation. GREAT VESSELS The aortic root is normal in size. The ascending aorta is normal in size. The pulmonary artery is normal. The IVC is normal in size and collapses >50% with inspiration. PERICARDIAL EFFUSION There is no pericardial effusion. There is no pleural effusion. <Conclusion> Four chamber dilatation EF-25-30%. Intact intra atrial septum by colr flow anf Bubble study. Velocity in MCKENZIE>0.4 m/s Mild Plaque in Descending aorta. 200 Joules Synchronized Cardioversion Done--- Pt converted to NSR. Recommendation: Continue Eliquis if Remains in NSR. Emphasis on Wt reduction Complete abstinence of ETOH. Compliance with C Pap for PARTH. Cc; Dr. Quinones
--- NOTE | 2017-02-28 18:22 | PN ---
DATE: 02/28/2017 REFERRING PHYSICIAN: Dr. Macias. SUBJECTIVE: He is sitting up in a reclining chair, night was unremarkable, use CPAP for 2 hour s, scheduled for SERG and cardioversion today. No headache, no rhinitis, no nausea, no vomiting, diar sage. No leg pain or leg swelling. OBJECTIVE: GENERAL: No acute distress. VITAL SIGNS: Temperature is 98, heart rate is 85, respiratory rate is 20, blood pressure 115/75, pul se ox 97% on 3 liters nasal cannula. HEENT: Moist mucous membranes. Crowded airway. Mallampati score is 4. NECK: Supple. No JVD. LUNGS: Fair airflow with few rhonchi. HEART: S1, S2. ABDOMEN: Soft, nontender. No organomegaly. EXTREMITIES: No edema. NEUROLOGIC: Awake, alert, follows simple command. MEDICATIONS: He is on Brovana 15 mcg inhaled twice a day, also on amiodarone 200 mg daily, Eliquis 5 mg twice a day, Lasix 20 mg daily, Pulmicort inhaler twice a day. LABORATORY DATA: Shows hemoglobin 12.7, hematocrit 38.2, WBC 9.1, platelets 146. Sodium 138, potass ium 4.0, chloride 107, bicarbonate 24, BUN 10, creatinine 0.9, glucose is 98, calcium is 8.5, phospho kimber is 4.1, magnesium 2.4, AST 30, ALT 58, alkaline phosphatase is 53, albumin is 3.6. IMPRESSION AND PLAN: Atrial fibrillation with cardiomyopathy, may have chronic obstructive lung dise ase, obstructive sleep apnea syndrome, morbid obesity. While I am dictating this note, I already not ed the patient's transesophageal echo and cardioversion, converted back to sinus rhythm. I had a robert g discussion with the patient about cigarette smoking in relation to sleep apnea, AFib. I urged him to stop smoking. I also spoke about sleep apnea and its relation to go back into atrial fibrillation after cardioversion if he is noncompliant with his CPAP/BiPAP. So I encouraged him to use CPAP/BiPA P while sleeping. Keep head elevated at 45 degrees. Gastric prophylaxis. On anticoagulation. May need attended sleep study upon discharge as outpatient and PFT as outpatient. Thank you and will fol low with you. Clifford Oviedo MD cc: [phone] TT: 02/28/2017 18:22:15 Confirmation # [id number] Dictation # [id number] mn
[2017-03-01 03:33] VITALS: RESP 20
[2017-03-01 06:15] LABS: ADD MANUAL DIFF? NO
[2017-03-01 06:20] LABS: BASO # 0.02 K/mm3 (0.0-2.0); BASO % 0.2 % (0.0-3.0); EOS # 0.1 (0.0-0.7); EOS % 1.6 % (1.5-5.0); GRAN # 6.46 (1.4-6.5); GRAN % 74.6 % (50.0-68.0); HEMATOCRIT 37.9 % (42.0-52.0); LYMPH # 1.4 (1.2-3.4); MEAN CELL VOLUME 100.5 fL (80.0-105.0); MEAN CORPUSCULAR HEMOGLOBIN 33.2 pg (25.0-35.0); MEAN PLATELET VOLUME 11.5 fl (7.0-11.0); MONO # 0.7 (0.1-0.6); MONO % 7.6 % (1.0-6.0); PLATELET COUNT 153 10^3/uL (120.0-450.0); WHITE BLOOD COUNT 8.7 10^3/ul (4.5-11.0)
[2017-03-01 06:37] LABS: ALB/GLOB RATIO 1.1 (1.1-1.8); ALKALINE PHOSPHATASE 49 U/L (38-133); ALT/SGPT 57 U/L (7-56); AST/SGOT 28 U/L (15-59); BILIRUBIN,TOTAL 0.8 mg/dL (0.2-1.3); BLOOD UREA NITROGEN 11 mg/dL (7-21); CALCIUM 8.2 mg/dL (8.4-10.5); CARBON DIOXIDE 21 mmol/L (21-33); CHLORIDE 106 mmol/L (95-110); GFR AFRICAN-AMERICAN > 60; GLUCOSE,RANDOM 94 mg/dL (70-110); MAGNESIUM 2.3 mg/dL (1.7-2.2); PHOSPHOROUS 3.9 mg/dL (2.5-4.5); POTASSIUM 3.7 mmol/L (3.6-5.0); SODIUM 136 mmol/L (132-148); TOTAL PROTEIN 6.8 g/dL (5.8-8.3)
[2017-03-01 07:24] VITALS: O2SAT 91
[2017-03-01] MEDS: Arformoterol 15 mcg/2 ml Inh Sol IH SCH (07:55)
[2017-03-01] MEDS: Budesonide 0.5 mg/2 ml Inhal Susp UD IH SCH (07:55)
[2017-03-01] MEDS ORDERED: Potassium Chloride 20 mEq ER Tab PO ONE (10:16)
--- NOTE | 2017-03-01 11:54 | CARD ---
APPROVED REPORT EKG Measurement Heart [id number] ME [id number] <Conclusion> Normal sinus rhythm Nonspecific T wave abnormality Prolonged QT Abnormal ECG
[2017-03-01 12:42] VITALS: BP 118/88; TEMP 98.5
[2017-03-01 15:00] VITALS: PULSE 95
--- NOTE | 2017-03-01 22:43 | CP.PCM.PN ---
Subjective - Date & Time of Evaluation Date of Evaluation: 03/01/17 Time of Evaluation: 10:00 - Subjective Subjective: out of bed to chair, feels better, use C PAP for 3 hours, no SOB ,no chest pain Objective - Vital Signs/Intake and Output Vital Signs (last 24 hours): Temp Pulse Resp BP Pulse Ox 98.5 F 95 H 20 118/88 91 L 03/01/17 12:00 03/01/17 14:00 03/01/17 12:00 03/01/17 12:00 03/01/17 06:00 Intake and Output: 03/01/17 03/02/17 18:59 06:59 Intake Total 960 Balance 960 - Labs Labs: 03/01/17 06:00 03/01/17 06:00 PT 12.4 Seconds (9.9-11.8) H 02/24/17 21:15 INR 1.15 (0.93-1.08) H 02/24/17 21:15 APTT 27.9 Seconds (23.7-30.8) 02/24/17 21:15 - Constitutional Appears: Well - Head Exam Head Exam: ATRAUMATIC, NORMAL INSPECTION, NORMOCEPHALIC - Eye Exam Eye Exam: EOMI, Normal appearance, PERRL - ENT Exam ENT Exam: Mucous Membranes Moist, Normal Exam - Neck Exam Neck Exam: Full ROM, Normal Inspection. absent: Lymphadenopathy - Cardiovascular Exam Cardiovascular Exam: REGULAR RHYTHM, +S1, +S2. absent: Murmur - GI/Abdominal Exam GI & Abdominal Exam: Soft, Normal Bowel Sounds. absent: Tenderness - Back Exam Back Exam: NORMAL INSPECTION - Neurological Exam Neurological Exam: Alert, Awake, CN II-XII Intact, Normal Gait, Oriented x3 - Skin Skin Exam: Dry, Intact, Normal Color, Warm Assessment and Plan - Assessment and Plan (Free Text) Assessment: s/p A FIB, s/p cardio version, PARTH, COPD, obesity Plan: discharge home if ok with cardiology, out patient sleep study, PFT, earge patient to stope smoking
== END 2017-03-01 15:12 | disposition home or self-care (01) | DRG 138 ==
LOC: ED 20:54 → ERH 23:37 → 2RNO 02-25 02:30 → OBSVTOIN 02-25 13:27
PROVIDERS: ADMIT Internal Medicine; ATTEND Internal Medicine
PROC: 5A2204Z Restoration of Cardiac Rhythm, Single (ICD-10-PCS; 2017-02-28)
PROC: B246ZZ4 Ultrasonography of Right and Left Heart, Transesophageal (ICD-10-PCS; principal; 2017-02-28 12:30)
DX: I48.91 Unspecified atrial fibrillation (principal); J44.9 Chronic obstructive pulmonary disease, unspecified; I42.9 Cardiomyopathy, unspecified; I27.2 Other secondary pulmonary hypertension; I11.0 Hypertensive heart disease with heart failure; I50.1 Left ventricular failure, unspecified; Z68.41 Body mass index [BMI] 40.0-44.9, adult; I08.3 Combined rheumatic disorders of mitral, aortic and tricuspid valves; I48.92 Unspecified atrial flutter; E66.01 Morbid (severe) obesity due to excess calories; G47.33 Obstructive sleep apnea (adult) (pediatric); F10.10 Alcohol abuse, uncomplicated; F17.210 Nicotine dependence, cigarettes, uncomplicated; K70.0 Alcoholic fatty liver; Z82.49 Family history of ischemic heart disease and other diseases of the circulatory system; Z91.19 Patient's noncompliance with other medical treatment and regimen

== ENCOUNTER 2018-09-14 18:34 | Emergency (ER) | payer MEDICAID ==
[2018-09-14 18:34] VITALS: PULSE 86; BMI 39.9
[2018-09-14 19:27] VITALS: TEMP 98
[2018-09-14] MEDS ORDERED: Folic Acid 1 MG, Thiamine 100 MG, Multivitamin (MVI) 10 ML in Dextrose 5% In Water 1,00... IV SCH (20:00)
--- NOTE | 2018-09-14 20:45 | ED PDOC ---
Arrival/HPI - General Chief Complaint: Alcohol Ingestion Time Seen by Provider: 09/14/18 18:55 Historian: Patient - History of Present Illness Narrative History of Present Illness (Text): 09/14/18 20:46 A 48 year old male, whose past medical history includes A-Fib and hypertension, presents to the emergency department for intoxication. Patient admits to drinking beer. Patient denies any injuries/trauma, headache, nausea, vomiting, or any other complaints at this time. PMD: Dr. Antoine Quinones Past Medical History - Provider Review Nursing Documentation Reviewed: Yes - Infectious Disease Hx of Infectious Diseases: None - Cardiac Hx Atrial Fibrillation: Yes Hx Hypertension: Yes - Pulmonary Hx Respiratory Disorders: No - Neurological Hx Neurological Disorder: No - HEENT Hx HEENT Disorder: No - Renal Hx Renal Disorder: No - Endocrine/Metabolic Hx Endocrine Disorders: No - Hematological/Oncological Hx Blood Transfusions: No - Integumentary Hx Dermatological Disorder: No - Musculoskeletal/Rheumatological Hx Musculoskeletal Disorders: No Hx Falls: No - Gastrointestinal Hx Gastrointestinal Disorders: No - Genitourinary/Gynecological Hx Genitourinary Disorders: No - Psychiatric Hx Psychophysiologic Disorder: No Hx Substance Use: No - Anesthesia Hx Anesthesia Reactions: No Family/Social History - Physician Review Nursing Documentation Reviewed: Yes Family/Social History: No Known Family HX Smoking Status: Heavy Smoker > 10 Cigarettes Daily Hx Alcohol Use: No Hx Substance Use: No Allergies/Home Meds Allergies/Adverse Reactions: Allergies No Known Allergies Allergy (Verified 02/24/17 20:58) Review of Systems - Physician Review All systems were reviewed & negative as marked: Yes - Review of Systems Constitutional: absent: Other (no injuries/trauma) Gastrointestinal: absent: Nausea, Vomiting Neurological: absent: Headache Physical Exam Vital Signs Reviewed: Yes Vital Signs Temp Pulse Resp BP Pulse Ox 09/14/18 19:23 98.0 F 74 18 105/62 96 Temperature: Afebrile Blood Pressure: Normal Pulse: Regular Respiratory Rate: Normal Appearance: Positive for: Well-Appearing, Non-Toxic, Comfortable Pain Distress: None Mental Status: Positive for: Alert and Oriented X 3 - Systems Exam Head: Present: Atraumatic, Normocephalic Pupils: Present: PERRL Extroacular Muscles: Present: EOMI Conjunctiva: Present: Normal Mouth: Present: Dry Neck: Present: Normal Range of Motion Respiratory/Chest: Present: Clear to Auscultation, Good Air Exchange. No: Respiratory Distress, Accessory Muscle Use Cardiovascular: Present: Regular Rate and Rhythm, Normal S1, S2. No: Murmurs Abdomen: No: Tenderness, Distention, Peritoneal Signs Back: Present: Normal Inspection Upper Extremity: Present: Normal Inspection. No: Cyanosis, Edema Lower Extremity: Present: Normal Inspection. No: Edema Neurological: Present: GCS=15, CN II-XII Intact, Speech Normal Skin: Present: Warm, Dry, Normal Color. No: Rashes Psychiatric: Present: Alert, Oriented x 3, Normal Insight, Normal Concentration Medical Decision Making ED Course and Treatment: 09/14/18 20:48 Impression: 48 year old male here for intoxication. No acute findings on physical examination. Plan: -- Labs -- Banana Bag -- Reassess and disposition Progress Notes: labs reviewed : alcohol 320. 2230 On reevaluation, patient observed ambulating in the ER in no acute distress, remains awake alert and oriented 3 in no acute distress with no tremors. Receiving IVF. 2345 On second reevaluation, patient is sleeping in bed in no acute distress, arouses easily, reports no complaints. On exam, patient remains awake alert and oriented 3 in no acute distress. Repeat neuro exam shows no focal findings. Speaking in full sentences, no slurred speech, no tremors. 0030 Patient is AAOx3, ambulatory in the ER in a normal steady gait. Is now sober, he feels comfortable going home. Patient is stable for d/c. - Medication Orders Current Medication Orders: Folic Acid 1 mg/ Thiamine HCl 100 mg/ Multivitamins/Vitamin C 10 ml/ Dextrose 1,011.2 mls @ 500 mls/hr IV .Q2H2M [facility] Stop: 09/14/18 22:01 - PA / STUDIO MANAGER / Resident Statement MD/ has reviewed & agrees with the documentation as recorded. - Scribe Statement The provider has reviewed the documentation as recorded by the Johnathan Gibson Provider Scribe Attestation: All medical record entries made by the Scribe were at my direction and personally dictated by me. I have reviewed the chart and agree that the record accurately reflects my personal performance of the history, physical exam, medi ganga decision making, and the department course for this patient. I have also personally directed, reviewed, and agree with the discharge instructions and disposition. Disposition/Present on Arrival - Present on Arrival Any Indicators Present on Arrival: No History of DVT/PE: No History of Uncontrolled Diabetes: No Urinary Catheter: No History of Decub. Ulcer: No History Surgical Site Infection Following: None - Disposition Have Diagnosis and Disposition been Completed?: Yes Diagnosis: Alcohol intoxication Disposition: HOME/ ROUTINE Disposition Time: 00:30 Patient Plan: Discharge Patient Problems: Current Active Problems Problem Status Onset Alcohol intoxication Acute Condition: STABLE Discharge Instructions (ExitCare): Alcohol Abuse and Alcoholism (DC) Referrals: Antoine Quinones MD [Primary Care Provider] - Follow up with primary Forms: [employer] (Spanish)
[2018-09-14 20:47] LABS: HEMOGLOBIN 15.9 g/dL (14.0-18.0); MEAN CELL VOLUME 101.3 fl (80.0-105.0); RBC 4.62 10^6/uL (3.5-6.1); WHITE BLOOD COUNT 7.7 10^3/uL (4.5-11.0)
[2018-09-14 20:48] LABS: BASO % 0.5 % (0.0-3.0); EOS % 1.6 % (1.5-5.0); GRAN # 5.31 (1.4-6.5); GRAN % 69.4 % (50.0-68.0); LYMPH # 1.9 (1.2-3.4); LYMPH % 24.3 % (22.0-35.0); MEAN CORPUSCULAR HEMOGLOBIN 34.4 pg (25.0-35.0); MEAN PLATELET VOLUME 11.1 fl (7.0-11.0); MONO # 0.3 (0.1-0.6); MONO % 4.2 % (1.0-6.0); RED CELL DISTRIBUTION WIDTH 13.3 % (11.5-14.5)
[2018-09-14 20:49] LABS: BASO # 0.04 K/mm3 (0.0-2.0); EOS # 0.1 (0.0-0.7)
[2018-09-14 20:50] LABS: ALB/GLOB RATIO 1.4 (1.1-1.8); ALBUMIN 4.6 g/dL (3.0-4.8); ALT/SGPT 90 U/L (7-56); AST/SGOT 60 U/L (17-59); BLOOD UREA NITROGEN 14 mg/dL (7-21); GFR NON-AFRICAN AMERICAN > 60; LIPASE 177 U/L (23-300)
[2018-09-15 01:42] VITALS: BP 116/79; PULSE 79; RESP 18; O2SAT 99
== END 2018-09-15 01:41 | disposition home or self-care (01) ==
LOC: ED 18:34
DX: F10.129 Alcohol abuse with intoxication, unspecified (principal); F17.210 Nicotine dependence, cigarettes, uncomplicated; I10 Essential (primary) hypertension; I48.91 Unspecified atrial fibrillation
CPT/HCPCS: 80053; 80320; 83690; 85025; 99284; J3411; J7070